=== PATIENT | female | born 1950 | race Caucasian/White ===

== ENCOUNTER → 2020-02-08 | Outpatient (CLI) | payer MEDICARE, OTHER ==
[~2020-02-08] MED LIST: ATORVASTATIN CA20 MG PO; BUPROPION XL150 MG PO; HYDROCHLOROTHIA25 MG PO; PROBIOTIC PO; QUINAPRIL HCL20 MG PO; RESTASIS1 EACH OU; WOMEN'S DAILY1 EAC2 PO
== END ==
LOC: MRI 08:35
PROVIDERS: ATTEND Specialist
DX: S83.281A Other tear of lateral meniscus, current injury, right knee, initial encounter (principal); S83.282A Other tear of lateral meniscus, current injury, left knee, initial encounter; M25.461 Effusion, right knee; M25.462 Effusion, left knee; M65.861 Other synovitis and tenosynovitis, right lower leg; M65.862 Other synovitis and tenosynovitis, left lower leg

== ENCOUNTER → 2020-02-27 | Day surgery (SDC) | payer MEDICARE, OTHER ==
[2020-02-22 12:19] LABS: BASOPHILS # (AUTO) 0.1 (0.0-0.1); BASOPHILS % 1.6 % (0.0-1.0); EOSINOPHILS # (AUTO) 0.7 (0.0-0.4); EOSINOPHILS % 7.8 % (0.0-6.0); HEMATOCRIT 37.2 % (34.2-44.1); HEMOGLOBIN 12.3 g/dL (12.0-16.0); LYMPHOCYTES # (AUTO) 1.9 (1.0-3.2); LYMPHOCYTES % 21.5 % (18.0-39.1); MEAN CORPUSCULAR HEMOGLOBIN 30.5 pg (28-32); MEAN CORPUSCULAR HGB CONC 33.1 g/dL (31-35); MEAN CORPUSCULAR VOLUME 92.3 fL (81-99); MONOCYTES # (AUTO) 0.9 (0.2-0.8); MONOCYTES % 10.8 % (4.4-11.3); NEUTROPHILS % 58.1 % (38.7-80.0); PLATELET COUNT 267 x10e3/uL (140-360); RED BLOOD COUNT 4.03 x10e6/uL (3.6-5.1); RED CELL DISTRIBUTION WIDTH 13.7 % (11.7-14.4)
[2020-02-22 12:38] LABS: ANION GAP 16.4 mmol/L (8-16); CALCIUM 9.6 mg/dL (8.4-10.2); CREATININE, SERUM 1.13 mg/dL (0.57-1.11); POTASSIUM 3.4 mmol/L (3.5-5.1)
[~2020-02-27] MED LIST changes: +ACETAMINOPHEN/CODEINE 300MG - 30MG TAB ONE; +BUPIVACAINE HCL 0.5% INJ 30 ML VIAL INJ ONE; +CEFAZOLIN SOD 1 GM/NS 50ML 100 ML IV ONE; +DEXAMETHASONE SOD PHOS INJ 4 MG/ML VIAL ONE; +FENTANYL CITRATE/PF 100MCG/2 ML INJ ONE; +LIDOCAINE HCL 2% LOCAL INJ 5 ML SDV VIAL INJ ONE; +MIDAZOLAM HCL 2 MG/2 ML VIAL ONE; +ONDANSETRON HCL INJ 2MG/ML 2ML 2 MG/ML VIAL ONE; +PROPOFOL IV EMULSION 10 MG/ML 20 ML VIAL ONE; +SEVOFLURANE INHAL SOLN 250 ML PEN BTL ONE
[2020-02-27 16:30] VITALS: BP 117/61
== END | disposition home or self-care (01) ==
LOC: OR 09:23
PROVIDERS: ATTEND Specialist
DX: S83.262A Peripheral tear of lateral meniscus, current injury, left knee, initial encounter (principal); S83.242A Other tear of medial meniscus, current injury, left knee, initial encounter; M22.42 Chondromalacia patellae, left knee; M17.0 Bilateral primary osteoarthritis of knee; S83.261A Peripheral tear of lateral meniscus, current injury, right knee, initial encounter; S83.221A Peripheral tear of medial meniscus, current injury, right knee, initial encounter; I10 Essential (primary) hypertension; X58.XXXA Exposure to other specified factors, initial encounter; Z01.810 Encounter for preprocedural cardiovascular examination; Z01.812 Encounter for preprocedural laboratory examination; Z01.818 Encounter for other preprocedural examination; Z11.59 Encounter for screening for other viral diseases; Z68.32 Body mass index [BMI] 32.0-32.9, adult
CPT/HCPCS: 29880; 36415; 71046; 80048; 85025; 93005; J0690; J1100; J2001; J2250; J2405; J2704; J3010; U0002